=== PATIENT | male | born 1950 | race Caucasian/White ===

== ENCOUNTER → 2016-08-25 | Outpatient (CLI) | payer MEDICARE, OTHER ==
[~2016-08-25] MED LIST: CPR500T PO; HYDR1CAP2 PO; MISO200T4 PO; MULT-608 PO; NF-DICLTB PO
--- NOTE | 2016-08-26 08:01 | ECHOCARDIOGRAPHY REPORT ---
PROCEDURE PHYSICIAN: FAB LERMA DATE OF PROCEDURE: 08/25/2016 TWO DIMENSIONAL ECHOCARDIOGRAM REPORT PRIMARY PHYSICIAN: OTHER PHYSICIAN: REFERRING PHYSICIAN: Dr. Gudino ORDERING PHYSICIAN: INDICATION FOR THE PROCEDURE: 1. Palpitation. 2. PVC. MEASUREMENTS DERIVED VALUES LV DIAMETER (LAX) NORMALS NORMALS Diastolic 4.3 (3.6-5.2) Eject. Fract. 60% (60%+/-6%) Systolic (2.3-3.9) Diastolic Vol. % Shortening (0.22-0.42) Systolic Vol. Aortic Root IVS THICKNESS Diastolic 1.3 (0.6-1.1) LVPW THICKNESS Diastolic 1.3 (0.6-1.1) LA DIAMETER Systolic 3.7 (2.1-3.7) FINDINGS: 1. Technical quality is good. 2. The left ventricle is normal in size with moderate left ventricular hypertrophy noted diffusely. Systolic function appeared to be normal. Estimated ejection fraction 60%. 3. The left atrium is normal in size. No clot or thrombus were seen within the left atrium. 4. The right atrium and right ventricle are normal in size. No clot or thrombus were seen within the right side. 5. Mitral valve is normal in morphology with mild mitral regurgitation noted by color Doppler flow. No mitral valve prolapse. No mitral valve stenosis. 6. Aortic valve is trileaflet with normal opening and closing pattern. No significant aortic stenosis or regurgitation was seen. 7. Tricuspid valve is normal in morphology with mild tricuspid regurgitation noted by color Doppler flow. Doppler across tricuspid valve estimated pulmonary artery pressure of 33+ right atrial pressure. 8. Pulmonic valve is functioning normally. 9. No pericardial effusion. IN CONCLUSION: 1. Moderate left ventricular hypertrophy noted diffusely with normal systolic function. Estimated ejection fraction 60%. 2. Mild mitral and tricuspid regurgitation. 3. Estimated pulmonary artery pressure of 40 mmHg. Job ID: [id number] Dictated Date: 08/25/2016 18:16:26 Spring Former Hand Date: 08/26/2016 07:57:42 / [email or web address]
--- NOTE | 2016-09-17 07:41 | STRESS TEST ---
PROCEDURE PHYSICIAN: FAB LERMA DATE OF PROCEDURE: 08/25/2016 EXERCISE STRESS ECHOCARDIOGRAM REPORT: REFERRING PHYSICIAN: Dr. Iglesia Gudino. INDICATION FOR THE PROCEDURE: 1. Dizziness. 2. Palpitation. BASELINE HEART RATE: 65 BASELINE BLOOD PRESSURE: 160/100 BASELINE EKG: Sinus rhythm with occasional PVCs. IN SUMMARY: The patient started exercising with the baseline heart rate, blood pressure and EKG mentioned above. He was able to exercise for a total of 5 minutes on standard Tate protocol. During exercise, he continued to have occasional PVCs and ventricular trigeminy. He was able to exercise for total of 5 minutes on standard Tate protocol, total of 7 METs, achieving maximum heart rate of 149, which is a 98% of maximum expected heart rate. With peak exercise level, EKG was showing no ischemic changes. Blood pressure was 213/91. During recovery, heart rate and blood pressure returned to baseline. The patient continued to have PVCs and ventricular bigeminy and trigeminy. Echocardiographic images were acquired and reviewed in the parasternal long axis, parasternal short axis, apical 4 chamber and apical 2 chamber views. Review of the images showed normal left ventricular size with normal contractility with no ischemic changes. IN CONCLUSION: 1. Fair exercise tolerance a total of 5 minutes on standard Tate protocol, total 7 METs, achieving 98% of maximum expected heart rate. 2. Baseline hypertension with hypertensive response to exercise, returned to baseline during recovery. 3. Frequent premature ventricular contractions, ventricular bigeminy and trigeminy noted during test. 4. Normal echocardiographic images with no ischemic changes with normal ejection fraction. 5. No ischemic changes on EKG. Job ID: [id number] Dictated Date: 08/25/2016 18:13:45 Silicator Date: 08/26/2016 07:51:38 / heriberto
== END ==
LOC: CARD 10:42
PROVIDERS: ATTEND Internal Medicine Cardiovascular Disease
DX: R61 Generalized hyperhidrosis (principal); R42 Dizziness and giddiness; R55 Syncope and collapse; Z82.49 Family history of ischemic heart disease and other diseases of the circulatory system; Z82.3 Family history of stroke
CPT/HCPCS: 93306; 93351

== ENCOUNTER → 2017-06-16 | Outpatient (CLI) | payer MEDICARE, OTHER ==
--- NOTE | 2017-06-16 11:47 | Diagnostic Imaging Report ---
INDICATION: Fall with chest pain. PA view of the chest is obtained. There is no evidence of pneumothorax or consolidation. Overall heart size and pulmonary vascularity are within normal limits. There is mild atelectasis and/or pneumonitis in the lung bases. No pulmonary contusion is identified. IMPRESSION: Slight basilar atelectasis and/or pneumonitis without evidence of acute abnormality seen in the chest. Dictated by: Dictated on workstation # [id number]
--- NOTE | 2017-06-16 12:15 | Diagnostic Imaging Report ---
EXAMINATION: Right ribs at 11:17 a.m. INDICATION: Fell, rib pain. Three views were obtained. FINDINGS: There is a displaced fracture in the lateral aspect of the right sixth rib. The main fracture fragments are displaced by approximately half the width of the rib shaft. There also appear to be nondisplaced fractures of the right seventh and eighth ribs. No other acute bony abnormality is identified with certainty. There may be a small amount of atelectasis/infiltrate and fluid in the right lung base. There is no sign of a pneumothorax, however. IMPRESSION: 1. There is a displaced fracture of the right sixth rib and nondisplaced fractures of the right seventh and eighth ribs. 2. There is a small amount of atelectasis/infiltrate and fluid in the right lung base, but there is no sign of a pneumothorax. 3. These results were discussed with Dr. Gudino. Dictated by: Dictated on workstation # [id number]
== END ==
LOC: RAD 10:40
PROVIDERS: ATTEND Family Medicine
DX: S22.41XA Multiple fractures of ribs, right side, initial encounter for closed fracture (principal); W19.XXXA Unspecified fall, initial encounter
CPT/HCPCS: 71045; 71100

== ENCOUNTER → 2020-08-15 | Outpatient (CLI) | payer MEDICARE, OTHER | LOC: CARD 08:48 | PROVIDERS: ATTEND Internal Medicine Cardiovascular Disease | DX: I11.9 Hypertensive heart disease without heart failure (principal) | CPT/HCPCS: 93306 ==

== ENCOUNTER → 2020-10-17 | Outpatient (CLI) | payer MEDICARE, OTHER ==
[~2020-10-17] MED LIST changes: +CATHETER FLUSH 10 ML SYR IV PRN
[2020-10-17 09:14] VITALS: BP 123/87
--- NOTE | 2020-10-17 13:31 | Cardiology Stress Test Report ---
Stress Test Report Date of Procedure/Referring: Date of Procedure: October 17, 2020 PCP Fab Coronado MD Admitting Physician Iglesia Gudino DO Indications: CAD Baseline Heart Rate: 61 Baseline Blood Pressure: Blood Pressure Systolic: 123 Blood Pressure Diastolic: 87 Vital Signs Date Time Temp Pulse Resp B/P (MAP) Pulse Ox O2 Delivery O2 Flow Rate FiO2 10/17/20 09:14 66 123/87 (99) 98 Room Air Baseline Vital Signs Vital Signs Date Time Temp Pulse Resp B/P (MAP) Pulse Ox O2 Delivery O2 Flow Rate FiO2 10/17/20 09:14 66 123/87 (99) 98 Room Air Baseline EKG: Baseline EKG: NSR, PVCs Summary: After explaining the procedure and details to the patient, he signed the consent and was brought to the stress nuclear laboratory. Patient exercised on standard Tate protocol, EKG, heart rate and blood pressure were monitored continuously, resting and stress doses of radio tracer were injected, imaging was acquired and reviewed in the short axis, horizontal long axis and vertical long axis views Patient was able to exercise for a total of 4.45 minutes on Tate protocol, M ETs 6.4 Maximum heart rate 127 Maximum blood pressure 203/111 Stress EKG, Minimal nondiagnostic changes Recovery EKG, Return to baseline TID: 0.88 SSS: 3 SDS: 3 EF: 59 Conclusion: 1. Good exercise tolerance for a total of 4 minutes 45 seconds on standard Ttae protocol, 6.4 METS achieving 85% of maximal expected heart rate 2. Frequent PVCs noted early in exercise persisted during test 3. Minimal nondiagnostic EKG changes with exercise return to baseline during recovery 4. Severe hypertensive response to exercise with peak blood pressure 203/111 return to baseline during recovery 5. Diaphragmatic attenuation with no significant ischemia or infarction on SPECT images 6. Normal left ventricular size with normal contractility, EF 59% FAB CORONADO MD October 17, 2020 13:31
== END ==
LOC: CARD 07:43
PROVIDERS: ATTEND Internal Medicine Cardiovascular Disease
DX: I49.3 Ventricular premature depolarization (principal); I25.10 Atherosclerotic heart disease of native coronary artery without angina pectoris
CPT/HCPCS: 78452; 93017; A9502

== ENCOUNTER → 2021-03-01 | Outpatient (CLI) | payer MEDICARE, OTHER ==
[~2021-03-01] MED LIST changes: -CATHETER FLUSH 10 ML SYR IV PRN
--- NOTE | 2021-03-01 13:28 | Diagnostic Imaging Report ---
INDICATION: Fall with left rib pain. FINDINGS: There is a mildly displaced posterior lateral left 7th rib fracture. No other fractures are seen. The left lung is well-aerated and clear. No pneumothorax or pleural effusion. IMPRESSION: Displaced left 7th rib fracture. Dictated by: Dictated on workstation # [id number]
== END ==
LOC: RAD 10:57
PROVIDERS: ATTEND Family Medicine
DX: S22.32XA Fracture of one rib, left side, initial encounter for closed fracture (principal); W19.XXXA Unspecified fall, initial encounter
CPT/HCPCS: 71100

== ENCOUNTER 2022-05-28 10:05 | Outpatient (CLI) | payer MEDICARE, OTHER | END 2022-05-28 10:45 | LOC: SLEEP 10:05 | PROVIDERS: ATTEND Internal Medicine Cardiovascular Disease | DX: G47.33 Obstructive sleep apnea (adult) (pediatric) (principal); I10 Essential (primary) hypertension; I49.9 Cardiac arrhythmia, unspecified; G47.10 Hypersomnia, unspecified; R06.83 Snoring | CPT/HCPCS: G0399 ==

== ENCOUNTER → 2022-05-29 | Outpatient (CLI) | payer MEDICARE, OTHER | LOC: CARD 09:30 | PROVIDERS: ATTEND Internal Medicine Cardiovascular Disease | DX: I35.1 Nonrheumatic aortic (valve) insufficiency (principal); I11.9 Hypertensive heart disease without heart failure | CPT/HCPCS: 93306 ==

== ENCOUNTER 2022-12-30 05:38 | Outpatient (CLI) | payer MEDICARE, OTHER ==
[~2022-12-30] VITALS: Ht 175.2 cm; Wt 98.5 kg
[2022-12-30] MEDS ORDERED: METO50TA7 PO (11:06)
[2022-12-30] MEDS ORDERED: FISH OIL (11:06)
[2022-12-30] MEDS ORDERED: ASPI-999 PO (11:06)
== END 2022-12-30 11:10 | disposition home or self-care (01) ==
LOC: PREOP 05:38
PROVIDERS: ATTEND Specialist
DX: Z01.818 Encounter for other preprocedural examination (principal)

== ENCOUNTER 2023-01-02 05:57 | Day surgery (SDC) | payer MEDICARE, OTHER ==
[~2023-01-02] VITALS: Wt 98.5 kg
[~2023-01-02 05:57] MED LIST changes: +ASPI-999 PO; +FISH OIL; +METO50TA7 PO
[2023-01-02 06:05] VITALS: BP 160/88
[2023-01-02] MEDS: TETRACAINE 0.5% OPHTH SOLN 4 ML BTL (SINGLE DOSE ONLY) OU PRN ×4 (06:25→06:42)
[2023-01-02] MEDS ORDERED: TIMOLOL 0.5% (CATARACTS) 0.3 ML BTL OU PRN (06:30)
[2023-01-02] MEDS ORDERED: LIDOCAINE PF 1% 2 ML VIAL IR PRN (06:30)
[2023-01-02] MEDS ORDERED: POVIDONE (BETADINE) OPHTH SOLN 5% 30 ML OP ONE (06:30)
[2023-01-02] MEDS ORDERED: MOXIFLOXACIN OPHTH SOLN 5 MG/ML 0.3 ML SYRINGE OP ONE (06:30)
[2023-01-02] MEDS: PHENYLEPHRINE 10% OPHTH (NEO-SYN) 5 ML BTL OU SCH ×3 (06:33→06:44)
[2023-01-02] MEDS: TROPICAMIDE 1% OPH SOLN (MYDRIACYL) 15 ML BTL OP SCH ×3 (06:33→06:44)
[2023-01-02] MEDS ORDERED: MIDAZOLAM 2 MG/2 ML (VERSED) VIAL ONE (07:25)
[2023-01-02 07:54] VITALS: BP 116/78
--- NOTE | 2023-01-02 08:02 | Ophthalmologist Pre-Op Note ---
Pre-Operative Progress Note H&P Reviewed The H&P was reviewed, patient examined and no changes noted. Date H&P Reviewed: Jan 02, 2023 Time H&P Reviewed: 07:11 Pre-Op Dx Cataract, Right Eye CARLIE MURILLO MD Jan 02, 2023 08:02
--- NOTE | 2023-01-02 08:03 | Ophthalmology Operative Report ---
Cataract removal/placement IOL PREOPERATIVE DIAGNOSIS: Cataract Right Eye POSTOPERATIVE DIAGNOSIS: Cataract Right Eye PROCEDURE: Cataract removal and placement of posterior chamber implant, right eye SURGEON: Lino Murillo ANESTHESIA: Topical with sedation COMPLICATIONS: None ESTIMATED BLOOD LOSS: Minimal DESCRIPTION OF PROCEDURE: After proper informed consent was obtained, the patient, a 72 male, was taken to the Operating Room and the right eye was anesthetized with tetracaine. The right eye was then prepped and draped in the usual manner. A wire lid speculum was placed. A paracentesis was made at the left hand position. Preservative free lidocaine was injected into the anterior chamber followed by viscoelastic. A clear corneal incision was made in the temporal position. A capsulorrhexis was preformed and the central nuclear and cortical material were removed. The posterior capsule was polished and Raj 18.0 AU00T0 IOL was placed into the capsular bag. The residual viscoelastic was aspirated and balanced saline solution was injected into the anterior chamber. Moxifloxacin was injected into the anterior chamber. The wound was checked and found to be water tight. The patient tolerated the procedure well without complications. LINO MURILLO MD Jan 02, 2023 08:03
--- NOTE | 2023-01-02 13:49 | Anesthesia-General Post-Op ---
MAC Patient Condition Mental Status/LOC: Same as Preop Cardiovascular: Satisfactory Nausea/Vomiting: Absent Respiratory: Satisfactory Pain: Controlled Complications: Absent Post Op Complications Complications None Follow Up Care/Instructions Patient Instructions None needed. Anesthesiology Discharge Order Discharge Order Patient is doing well, no complaints, stable vital signs, no apparent adverse anesthesia problems. No complications reported per nursing. SANDY GUTIERREZ CRNA Jan 02, 2023 13:49
== END 2023-01-02 07:57 | disposition home or self-care (01) ==
LOC: SDC 05:57
PROVIDERS: ATTEND Specialist
DX: H25.9 Unspecified age-related cataract (principal); Z87.891 Personal history of nicotine dependence
CPT/HCPCS: 66984; V2632

== ENCOUNTER 2023-01-12 11:50 | Outpatient (CLI) | payer MEDICARE, OTHER | END 2023-01-12 14:37 | disposition home or self-care (01) | LOC: PREOP 11:50 | PROVIDERS: ATTEND Specialist | DX: Z01.818 Encounter for other preprocedural examination (principal) ==

== ENCOUNTER 2023-01-16 06:12 | Day surgery (SDC) | payer MEDICARE, OTHER ==
[~2023-01-16] VITALS: Ht 177.8 cm; Wt 98.5 kg
[2023-01-16] MEDS ORDERED: TIMOLOL 0.5% (CATARACTS) 0.3 ML BTL OU PRN (06:15)
[2023-01-16] MEDS ORDERED: LIDOCAINE PF 1% 2 ML VIAL IR PRN (06:15)
[2023-01-16] MEDS ORDERED: POVIDONE IODINE OPHTH SOLN 5% 30 ML OP ONE (06:15)
[2023-01-16] MEDS ORDERED: MOXIFLOXACIN OPHTH SOLN 5 MG/ML 0.3 ML SYRINGE OP ONE (06:15)
[2023-01-16] MEDS: TETRACAINE 0.5% OPHTH SOLN 4 ML BTL (SINGLE DOSE ONLY) OU PRN ×4 (06:23→06:40)
[2023-01-16] MEDS: PHENYLEPHRINE 10% OPHTH SOLN 5 ML BTL OU SCH ×3 (06:30→06:40)
[2023-01-16] MEDS: TROPICAMIDE 1% OPH SOLN (MYDRIACYL) 15 ML BTL OP SCH ×3 (06:30→06:40)
[2023-01-16 06:31] VITALS: BP 140/82
[2023-01-16] MEDS ORDERED: MIDAZOLAM INJ 2 MG/2 ML VIAL ONE (06:54)
--- NOTE | 2023-01-16 06:56 | Ophthalmologist Pre-Op Note ---
Pre-Operative Progress Note H&P Reviewed The H&P was reviewed, patient examined and no changes noted. Date H&P Reviewed: Jan 16, 2023 Time H&P Reviewed: 06:56 Pre-Op Dx Cataract, Left Eye CARLIE MURILLO MD Jan 16, 2023 06:56
--- NOTE | 2023-01-16 07:16 | Ophthalmology Operative Report ---
Cataract removal/placement IOL PREOPERATIVE DIAGNOSIS: Cataract Left Eye POSTOPERATIVE DIAGNOSIS: Cataract Left Eye PROCEDURE: Cataract removal and placement of posterior chamber implant, left eye SURGEON: Lino Murillo ANESTHESIA: Topical with sedation COMPLICATIONS: None ESTIMATED BLOOD LOSS: Minimal DESCRIPTION OF PROCEDURE: After proper informed consent was obtained, the patient, a 72 male, was taken to the Operating Room and the left eye was anesthetized with tetracaine. The left eye was then prepped and draped in the usual manner. A wire lid speculum was placed. A paracentesis was made at the left hand position. Preservative free lidocaine was injected into the anterior chamber followed by viscoelastic. A clear corneal incision was made in the temporal position. A capsulorrhexis was preformed and the central nuclear and cortical material were removed. The posterior capsule was polished and an Raj 18.0 AU00T0 was placed into the capsular bag. The residual viscoelastic was aspirated and balanced saline solution was injected into the anterior chamber. Moxifloxacin was injected into the anterior chamber. The wound was checked and found to be water tight. The patient tolerated the procedure well without complications. LINO MURILLO MD Jan 16, 2023 07:16
[2023-01-16 07:20] VITALS: BP 138/80
--- NOTE | 2023-01-16 11:15 | Anesthesia-General Post-Op ---
MAC Patient Condition Mental Status/LOC: Same as Preop Cardiovascular: Satisfactory Nausea/Vomiting: Absent Respiratory: Satisfactory Pain: Controlled Complications: Absent Post Op Complications Complications None Follow Up Care/Instructions Patient Instructions None needed. Anesthesiology Discharge Order Discharge Order Patient is doing well, no complaints, stable vital signs, no apparent adverse anesthesia problems. No complications reported per nursing. JOHN DAVIS CRNA Jan 16, 2023 11:15
== END 2023-01-16 07:22 | disposition home or self-care (01) ==
LOC: SDC 06:12
PROVIDERS: ATTEND Specialist
DX: H25.9 Unspecified age-related cataract (principal); Z87.891 Personal history of nicotine dependence
CPT/HCPCS: 66984; V2632